=== PATIENT | male | born 1965 | race Caucasian/White ===

== ENCOUNTER 2021-02-03 12:48 | Outpatient (REF) | payer OTHER, SELFPAY ==
[2021-02-03 13:57] LABS: Amphetamine Screen Urine Not Detected (Not Detect); Barbiturates, Urine Not Detected (Not Detect); Benzodiazepines Screen Urine Not Detected (Not Detect); Cannabinoid Screen Urine Not Detected (Not Detect); Cocaine Screen Urine Not Detected (Not Detect); Fentanyl, urine Not Detected (Not Detect); Opiate Screen Urine Not Detected (Not Detect); Phencyclidine Screen Urine Not Detected (Not Detect)
== END 2021-02-03 12:49 | disposition home or self-care (01) ==
LOC: HO.LAB 12:48
PROVIDERS: PCP Internal Medicine; Visit Provider Internal Medicine
DX: F11.90 Opioid use, unspecified, uncomplicated (principal); Z79.899 Other long term (current) drug therapy
CPT/HCPCS: 80307

== ENCOUNTER → 2021-04-03 09:36 | Outpatient (REF) | payer OTHER, SELFPAY ==
--- NOTE | 2021-04-03 09:40 | CA_ITS ---
Transthoracic Echocardiogram Patient (Last, First, Middle): Raimundo Correa, Gender: Male Date of : 1965 Age: 55 Procedure Date: 04/03/2021 Procedure Type: Transthoracic Echocardiogram Location: OP Height: 157.48 cm Weight: 89.81 kg BSA: 1.90 m2 Heart Rate: bpm BP: 124 / 70 mmHg Metal Mockup Maker: Referring MD: Fariha Roberto MD Hand Potter: Ephraim Butt MD Symptoms: R07.9 - Chest pain, unspecified Study Quality: Fair ECG Rhythm: Sinus Conclusions: - Essentially normal study Findings Left Ventricle Normal left ventricular size, thickness, and systolic function. The visually estimated ejection fraction is between 60-65%. Spectral Doppler is indicative of a normal filling pattern. Right Ventricle Normal right ventricular cavity size and systolic function. Atria Both atria are normal in size. Interatrial shunt cannot be excluded. Aortic Valve The aortic valve structure and function is likely normal. There is no aortic valve stenosis. There is no aortic valve regurgitation. Mitral Valve Likely normal mitral valve structure and function. There is trace mitral valve regurgitation. There is no mitral valve stenosis. Pulmonic Valve The pulmonic valve was not well visualized. Tricuspid Valve Likely normal tricuspid valve structure and function. There is trace tricuspid valve regurgitation. The right ventricular systolic pressure is normal. There is no evidence of pulmonary hypertension. Great Vessels All visible segments of the aorta are normal in size. The pulmonary artery was not well visualized. Venous The inferior vena cava is normal in size and collapses greater than 50% with inspiration. Pericardium/Pleural There is no evidence of pericardial effusion. Prior Study Comparison no previous study in the last 5 years for comparison Measurements 2D Linear Measurements IVSd: 0.97 0.6-0.9/0.6-1.0 cm LVIDd: 3.95 3.9-5.3/4.2-5.9 cm LVIDd Index: 2.08 2.4-3.2/2.2-3.1 cm/m2 LVIDs: 2.24 2.0-3.6 cm LVPWd: 1.05 0.7-1.1 cm Ao Root: 2.70 2.1-3.5 cm LA Diam: 3.40 2.7-3.8/3.0-4.0 cm LAIDs Index: 1.79 1.5-2.3 cm/m2 LV Mass: 157.64 67-162/88-224 g LV Mass Index: 82.97 43-95/49-115 g/m2 LVOT Diam: 2.10 3.0+(-)1.3 cm 2D Systolic Function EF 4C: 56.30 >55% EF 2C: 59.60 >55% Mitral Valve MV Pk E: 0.96 MV PK A: 0.71 MV Decel Time: 180.00 E/A: 1.40 E'Lateral: 19.80 E'Medial: 9.03 E/E' Med: 10.70 E/E' Lat: 4.90 PHT: 53.00 MVA PHT: 4.15 Decel [place]: 5.35 Aortic Valve AoV Pk Marv: 1.40 AoV Mn Marv: 1.00 AoV VTI: 0.29 AoV Pk Grad: 8.00 Aov Mn Grad: 5.00 BENJAMIN Cont.VTI: 2.39 LVOT LVOT Pk Marv: 1.00 LVOT Mn Marv: 0.73 LVOT VTI: 0.20 LVOT Pk Grad: 4.00 LVOT Mn Grad: 2.00 LVOT Diam: 2.10 LVOT Area: 3.46 Diastolic Function MV Pk E: 0.96 MV Pk A: 0.71 E/A: 1.40 E'Medial: 9.03 E/E' Med: 10.70 E' Laterial: 19.80 E/E' Lat: 4.90 Right Ventricle TAPSE (mm): 23.00 Tricuspid Valve TR Pk Amrv: 2.14 TR Pk Grad: 18.00 RA Press: 3.00 RVSP: 21.00 Great Vessels Aorta Ao Root-2D: 2.70 2.0-3.7 cm Ao Asc: 2.50 2.1-3.4 cm Ao Arch: 2.70 Pulmonary Valve PV Pk Marv: 1.28 Peak PV Grad: 7.00 Updated in Other Vendor System with Status of Final Ephraim Butt MD electronically signed on 04/04/2021 11:39:38 AM with status of Final
--- NOTE | 2021-04-03 09:40 | ECG_ITS ---
Test Reason : CHEST PAIN Blood Pressure : / mmHG Vent. Rate : 097 BPM Atrial Rate : 097 BPM P-R Int : 148 ms QRS Dur : 084 ms QT Int : 334 ms P-R-T Axes : 063 056 050 degrees QTc Int : 424 ms Normal sinus rhythm Normal ECG When compared with ECG of 02-APR-2019 20:33, No significant change was found Referred By: Fariha Roberto Electronically Signed By:BUDDY RODGERS MD
== END ==
LOC: HO.CARD 09:36
PROVIDERS: Visit Provider Internal Medicine
DX: R07.9 Chest pain, unspecified (principal); R06.02 Shortness of breath
CPT/HCPCS: 93005; 93306

== ENCOUNTER 2021-05-29 08:02 | Outpatient (REF) | payer OTHER, SELFPAY ==
[2021-05-29 08:28] LABS: MANUAL DIFF FLAG NO
[2021-05-29 09:19] LABS: Basophils Absolute Auto 0.1 X10*3/uL (0.0-0.2); Basophils Percent Auto 0.7 % (0-2); Eosinophils Absolute Auto 0.3 X10*3/uL (0.0-0.4); Eosinophils Percent Auto 4.6 % (0-4); Hematocrit 40.5 % (42.0-52.0); Hemoglobin 13.7 g/dl (14.0-18.0); Imm Gran Abs Auto 0.04 X10*3/uL (0.00-0.03); Imm Gran Pct Auto 0.6 % (0.0-0.4); Lymphocytes Absolute Auto 1.7 X10*3/uL (1.2-4.9); Mean Corpuscular HGB Conc 33.8 g/dl (31.0-36.0); Mean Corpuscular Volume 94.6 fL (80.0-98.0); Mean Platelet Volume 9.2 fL (9.4-12.4); Monocytes Absolute Auto 0.7 X10*3/uL (0.1-1.2); Monocytes Percent Auto 9.5 % (2-11); Neutrophils Absolute Auto 4.1 x10*3/uL (2.0-8.3); Neutrophils Percent Auto 59.6 % (45-73); Platelet Count 253 X10*3/uL (160-400); Red Blood Count 4.28 X10*6/uL (4.60-5.80); Red Cell Distribution Width 11.8 % (11.0-16.0); White Blood Count 6.9 X10*3/uL (4.8-10.8)
[2021-05-29 09:36] LABS: Alanine Aminotransferase 50 U/L (0-40); Albumin Level 4.2 g/dL (3.5-5.0); Alkaline Phosphatase 170 U/L (39-117); Anion Gap 11 (12-20); Aspartate Amino Transferase 28 U/L (5-37); Bilirubin Total 0.5 mg/dL (0.0-1.0); Blood Urea Nitrogen 11 mg/dL (9-16); Calcium 9.8 mg/dL (8.4-10.2); Carbon Dioxide 28 mmol/L (22-29); Chloride 104 mmol/L (96-108); Cholesterol 183 mg/dL; Estimated Glomerular Filt Rate > 60; Glucose Fasting 101 mg/dL (60-99); HDL Cholesterol 41 mg/dL; LDL Cholesterol Calculated 83 mg/dl; Potassium 4.2 mmol/L (3.3-5.1); Sodium 139 mmol/L (135-145); Total Protein 6.8 g/dL (6.5-8.0); Triglycerides 296 mg/dL
[2021-05-29 09:56] LABS: PSA,Total (Free>4and<10) 1.06 ng/mL (0.00-4.00)
[2021-06-02 12:41] LABS: Vitamin D 25-OH, D2 <4 ng/mL; Vitamin D 25-OH, D3 28 ng/mL; Vitamin D 25-OH, Total 28 ng/mL (30-100)
== END 2021-05-29 08:03 | disposition home or self-care (01) ==
LOC: HO.LAB 08:02
PROVIDERS: PCP Internal Medicine; Visit Provider Internal Medicine
DX: D64.9 Anemia, unspecified (principal); E78.00 Pure hypercholesterolemia, unspecified; E78.5 Hyperlipidemia, unspecified; E55.9 Vitamin D deficiency, unspecified; Z12.5 Encounter for screening for malignant neoplasm of prostate
CPT/HCPCS: 36415; 80053; 80061; 82306; 84153; 85025

== ENCOUNTER 2021-06-01 13:27 | Outpatient (REF) | payer OTHER, SELFPAY ==
[2021-06-01 16:09] LABS: Amphetamine Screen Urine Not Detected (Not Detect); Barbiturates, Urine Not Detected (Not Detect); Benzodiazepines Screen Urine Not Detected (Not Detect); Cannabinoid Screen Urine Not Detected (Not Detect); Cocaine Screen Urine Not Detected (Not Detect); Fentanyl, urine Not Detected (Not Detect); Opiate Screen Urine Not Detected (Not Detect); Phencyclidine Screen Urine Not Detected (Not Detect)
[2021-06-05 08:56] LABS: Alprazolam, GCMS Urine NEGATIVE; Aminoclonazepam, GCMS Urine 74 (H); Nordiazepam, GCMS Urine NEGATIVE
[2021-06-05 08:57] LABS: Alphahydroxymidazolam,GCMS Ur NEGATIVE; Alphahydroxytriazolam, GCMS Ur NEGATIVE; Flurazepam Metabolite,GCMS Ur NEGATIVE; Lorazepam GCMS Urine NEGATIVE; Oxazepam, GCMS Urine NEGATIVE; Temazepam, GCMS Urine NEGATIVE
[2021-06-09 08:05] LABS: Codeine, Ur NEGATIVE; Hydrocodone, Ur NEGATIVE; Morphine, Ur NEGATIVE; Oxycodone, Ur 776
[2021-06-09 08:06] LABS: Hydromorphone, Ur NEGATIVE; Norhydrocodone, Ur NEGATIVE; Noroxycodone, Ur 367; Oxymorphone, Ur 400
== END 2021-06-01 13:28 | disposition home or self-care (01) ==
LOC: HO.LAB 13:27
PROVIDERS: Visit Provider Internal Medicine
DX: F11.20 Opioid dependence, uncomplicated (principal); F41.1 Generalized anxiety disorder
CPT/HCPCS: 80307; 80346; 80364; 80365

== ENCOUNTER 2021-09-25 07:59 | Outpatient (REF) | payer OTHER, SELFPAY ==
[2021-09-25 09:23] LABS: Alanine Aminotransferase 47 U/L (0-40); Albumin Level 4.3 g/dL (3.5-5.0); Alkaline Phosphatase 89 U/L (39-117); Anion Gap 13 (12-20); Aspartate Amino Transferase 31 U/L (5-37); Bilirubin Total 0.5 mg/dL (0.0-1.0); Blood Urea Nitrogen 9 mg/dL (9-16); Carbon Dioxide 26 mmol/L (22-29); Chloride 104 mmol/L (96-108); Cholesterol 172 mg/dL; Estimated Glomerular Filt Rate > 60; Glucose Fasting 94 mg/dL (60-99); HDL Cholesterol 42 mg/dL; LDL Cholesterol Calculated 96 mg/dl; Potassium 4.1 mmol/L (3.3-5.1); Sodium 139 mmol/L (135-145); Total Protein 6.8 g/dL (6.5-8.0); Triglycerides 173 mg/dL
[2021-09-25 09:28] LABS: Amphetamine Screen Urine Not Detected (Not Detect)
== END 2021-09-25 08:00 | disposition home or self-care (01) ==
LOC: HO.LAB 07:59
PROVIDERS: PCP Internal Medicine; Visit Provider Internal Medicine
DX: E78.00 Pure hypercholesterolemia, unspecified (principal); F41.9 Anxiety disorder, unspecified; E78.5 Hyperlipidemia, unspecified
CPT/HCPCS: 80053; 80061; 80307

== ENCOUNTER 2022-07-02 10:52 | Outpatient (REF) | payer OTHER, SELFPAY ==
[2022-07-02 14:14] LABS: Alanine Aminotransferase 28 U/L (0-40); Albumin Level 4.3 g/dL (3.5-5.0); Alkaline Phosphatase 103 U/L (39-117); Anion Gap 13 (12-20); Aspartate Amino Transferase 23 U/L (5-37); Bilirubin Total 0.4 mg/dL (0.0-1.0); Blood Urea Nitrogen 11 mg/dL (9-16); Calcium 9.7 mg/dL (8.4-10.2); Carbon Dioxide 28 mmol/L (22-29); Chloride 101 mmol/L (96-108); Cholesterol 177 mg/dL; Estimated Glomerular Filt Rate > 60; Glucose Fasting 94 mg/dL (60-99); HDL Cholesterol 45 mg/dL; LDL Cholesterol Calculated 108 mg/dl; Potassium 4.3 mmol/L (3.3-5.1); Sodium 138 mmol/L (135-145); Total Protein 6.7 g/dL (6.5-8.0); Triglycerides 124 mg/dL
== END 2022-07-02 10:53 | disposition home or self-care (01) ==
LOC: HO.10HDL 10:52
PROVIDERS: Visit Provider Internal Medicine
DX: E78.2 Mixed hyperlipidemia (principal)
CPT/HCPCS: 36415; 80053; 80061

== ENCOUNTER 2023-08-16 08:04 | Outpatient (AMB) | payer OTHER, SELFPAY ==
--- NOTE | 2023-08-16 08:13 | A.OFFPC_ITS ---
Vital Signs 08/16/23 08:15 Height 5 ft 3 in Weight 173 lb BMI 30.6 BP 136/84 Blood Pressure Location Lt brachial Position Sitting Intake Visit Reasons: Physical exam Intake Note: Patient here for a physical exam Personal Insurance Advisor Required: No Accompanied by: Self / Same As Patient Allergies citalopram [Celexa] Allergy (Intermediate, Verified 08/16/23 08:33) rash tramadol Allergy (Intermediate, Verified 08/16/23 08:33) Hallucinations gemfibrozil [GEMFIBROZIL] Adverse Reaction (Intermediate, Verified 08/16/23 08:33) NAUSEA & VOMITING Medication List - Last Reconciled 08/16/23 by Fariha Roberto MD atorvastatin 40 mg PO DAILY clonazepam 0.5 mg PO BID PRN clotrimazole-betamethasone 1-0.05 % 1 appl topical BID 2 weeks duloxetine 60 mg PO DAILY fenofibrate 54 mg PO DAILY 90 days lidocaine 5% 1 patch topical DAILY 30 days omeprazole 40 mg PO DAILY 90 days oxcarbazepine mg PO oxycodone 10 mg PO Q8H PRN 30 days polyvinyl alcohol 1.4% (Artificial Tears (polyvinyl alcohol)) 1 drp ophthalmic (eye) BID-QID PRN 30 days risperidone 1 mg PO BEDTIME risperidone 2 mg PO BEDTIME trazodone 100 mg PO BEDTIME Tobacco use date assessed: 08/16/23 Dental Screening Dental Screen Date: 08/16/23 Did you have a dental visit in the last 12 months?: No Did you have a dental problem in the last 6 months where you did not have access to dental care?: No Was dental information given to patient?: Patient declined HPI HPI Comments History of Present Illness Details This is a 57-year-old male with mild recurrent major depression and opiate dependence in controlled environment that comes for his physical exam. Depression has been aggravated by mother passing away. He has a counselor and is on a waiting list for a psychiatrist. He does take medication. On oxycodone for chronic low back pain and walks with a cane for gait stability. He is aware that can cause addiction and sedation. Complains of erectile dysfunction which can be due to testosterone deficiency secondary to oxycodone use and he is aware. He thinks it was the clonazepam and therefore was decreased. Testosterone will be measured. Has history of inhaling cocaine over 20 years ago and hepatitis-C will be order. Denies jaundice. Had colonoscopy few years ago at [facility] and it was normal. We will get the records. [facility] Medical History (Updated 08/16/23 @ 08:50 by Fariha Roberto MD) Eye tearing Mixed hyperlipidemia Opioid dependence in controlled environment SANJUANA (generalized anxiety disorder) Mild recurrent major depression Dry eyes Shortness of breath Chest pain Smoker GERD (gastroesophageal reflux disease) Pure hypercholesterolemia Depression with anxiety Lumbar degenerative disc disease Surgical History History of removal of retained hardware Deficient knowledge of leg surgery Family History Father Diabetes Prostate cancer Mother Diabetes Hypertension Rheumatoid arthritis Sister Colon cancer Maternal Aunt Cancer Diabetes Paternal Aunt Cancer Diabetes Social History Housing: Apartment Alcohol intake: former Patient Tobacco Use Status: Current everyday Tobacco user Tobacco use type: Cigarette Cigarettes Per Day: 15 e-Cigarette/Vaping Use: Never Used Second Hand Smoke Exposure: Yes service: No Current occupational status: disabled Cognitive needs: Yes Hearing needs: No Vision needs: Yes Questionnaire PHQ-9 Over the last 2 weeks, how often have you been bothered by any of the following problems? 1. Little interest or pleasure in doing things: more than half the days 2. Feeling down, depressed, or hopeless: more than half the days 3. Trouble falling or staying asleep, or sleeping too much: several days 4. Feeling tired or having little energy: not at all 5. Poor appetite or overeating: not at all 6. Feeling bad about yourself - or that you are a failure or have let yourself or your family down: several days 7. Trouble concentrating on things, such as reading the newspaper or watching television: nearly every day 8. Moving or speaking so slowly that other people could have noticed. Or the opposite - being so fidgety or restless that you have been moving around a lot more than usual: more than half the days 9. Thoughts that you would be better off or of hurting yourself in some way: not at all Total score: 11 Depression Screening Interpretation: Positive Depression Screening Follow-up: Existing condition, In treatment and Community Mental Health Worker F/U Depression Screening Done: Yes 70138 - PHQ-9 Billing: Yes Source: Developed by Drs. Av Mccann, Amber Steward, Inocente Colby and colleagues, with an educational sonya from [employer]. Thrive Questionnaire Date Thrive assessed: 08/16/23 I am a: Patient What is your living situation today?: I have a steady place to live Within the past 12 months, did the food you bought not last and you didn't have the money to get more?: Never true Within the past 12 months, did you worry whether your food would run out before you got money to buy more?: Never true Do you have trouble paying for medicines?: No Do you have trouble getting transportation to medical appointments?: No Do you have trouble paying your heating and electricity bill?: No Do you have trouble taking care of your child, family member or friend?: No Do you have trouble with day-to-day activities such as bathing, preparing meals, shopping, managing finances, etc.?: No Are you currently unemployed and looking for a job?: No Are you interested in more education?: No Please select the resources that you would like help with: None Currently or been in a relationship where the following occur: no concerns reported THRIVE Score: 0 AUDIT C Alcohol Use Questionnaire (AUDIT-C) 1. How often do you have a drink containing alcohol?: Never Total Score: 0 SANJUANA-7 AMB Questionnaire SANJUANA-7 Date SANJUANA - 7 assessed: 08/16/23 Feeling nervous, anxious, or on edge: 2 = More than half the days Not being able to stop or control worryin = Not at all Worrying too much about different things: 2 = More than half the days Trouble relaxin = More than half the days Being so restless that it is hard to sit still: 1 = Several days Becoming easily annoyed or irritable: 1 = Several days Feeling afraid as if something awful might happen: 1 = Several days Total SANJUANA-7 score (0-4 normal; 5-9 mild; 10-14 moderate; 15-21 severe): 9 Source: Developed by Amber Good Kurt Kroenke and colleagues, with an educational sonya from [employer]. Review of Systems Const All systems reviewed & are unremarkable except as noted in HPI and below Eyes Reports no additional complaints, Denies change in vision and Denies other visual disturbances Card Denies chest pain at rest, Denies chest pain with activity, Denies edema, Denies irregular heart rhythm, Denies claudication, Denies dyspnea, Denies dyspnea on exertion, Denies orthopnea, Denies paroxysmal nocturnal dyspnea and Denies slow heart rate Resp Denies cough, Denies dyspnea and Denies dyspnea on exertion GI Denies abdominal pain, Denies change in bowel habits, Denies excessive flatus, Denies nausea and Denies vomiting Neuro Denies lack of coordination Psych Reports depression Physical exam (Primary Care) Vital Signs: Last Vital Signs BP 136/84 08/16/23 08:15 BMI result Body Mass Index 30.6 Tobacco/Smoking Status: Tobacco use Status Tobacco use date assessed 08/16/23 08/16/23 08:21 Patient Tobacco Use Status Current everyday Tobacco 08/16/23 08:15 Tobacco use type Cigarette 08/16/23 08:15 e-Cigarette/Vaping Use Never Used 08/16/23 08:15 Are you ready to quit: No Tobacco cessation counseling provided: No PHQ-9: PHQ-9 Score PHQ-9: Total score 11 08/16/23 08:21 Depression Screening Interpretation: Positive Depression Screening Follow-up: Existing condition, In treatment and Community Mental Health Worker F/U Thrive Assessment: Date of Thrive Assessment Date Thrive assessed 08/16/23 08/16/23 08:21 Currently or been in a relationship where the following occur: no concerns reported Const Orientation/consciousness: patient oriented x3 Limitations: ambulation with cane HENMT Head: Yes normal to inspection, Yes normocephalic and Yes atraumatic Ears: external ears normal Eyes General: appearance normal, both eyes and all related structures Eyelids: Yes eyelids normal Conjunctivae: conjunctivae normal Neck Neck: Yes normal visual inspection and Yes supple Resp Effort & Inspection: normal respiratory effort Auscultation: clear to auscultation bilaterally Cardio Jugular venous distension: no JVD Rate: regular rate Rhythm: regular rhythm Heart sounds: S1 normal heart sound present and S2 normal heart sound present GI Inspection: Yes normal to inspection Palpation (GI): Soft to palpation and nontender Auscultation: normal bowel sounds Skin General skin exam: no rashes or lesions noted Neuro General: patient oriented x3 and no focal motor deficits Extrem General: Yes full ROM Psych Appearance: grossly normal Assessment and Plan Assessment & Plan (1) Physical exam: Code(s): Z00.00 - Encounter for general adult medical examination without abnormal findings Plan: Repeat in a year. (2) Opioid dependence in controlled environment: Code(s): F11.20 - Opioid dependence, uncomplicated Plan: Continue oxycodone as needed. (3) Mild recurrent major depression: Code(s): F33.0 - Major depressive disorder, recurrent, mild Plan: Continue Risperdal. Follow-up with counseling. Orders: Orders Lipid Panel Today E78.5 - Hyperlipidemia, unspecified Testosterone, Free/Total Today F11.20 - Opioid dependence, uncomplicated, N52.9 - Male erectile dysfunction, unspecified PSA,Total (Free>4and<10) Today Z12.5 - Encounter for screening for malignant neoplasm of prostate Comprehensive [place]. Panel Fast Today Z00.00 - Encounter for general adult medical examination without abnormal findings Hepatitis C Antibody Today Z11.59 - Encounter for screening for other viral diseases, Z91.89 - Other specified personal risk factors, not elsewhere classified PFT pulmonary function test Today XR chest 2V Today R06.00 - Dyspnea, unspecified Referrals Dermatology Referral L98.9 - Disorder of the skin and subcutaneous tissue, unspecified Medications: New levalbuterol tartrate 45 mcg/actuation (Xopenex HFA) 2 inhalations inhalation Q6H 30 days PRN 15 grams 1RF shortness of breath or wheezing J45.909 - Unspecified asthma, uncomplicated Coding Level of Care Code Est Pt Prev Care 40-64y(45880) Diagnoses Physical exam Z00.00 Opioid dependence in controlled environment F11.20 Mild recurrent major depression F33.0 Time Spent (min) 32
[2023-08-16 08:15] VITALS: BP 136/84; BMI 30.6
== END 2023-08-16 08:45 | disposition home or self-care (01) ==
PROVIDERS: PCP Internal Medicine; Visit Provider Internal Medicine
DX: Z00.00 Encounter for general adult medical examination without abnormal findings (principal); F11.20 Opioid dependence, uncomplicated; F33.0 Major depressive disorder, recurrent, mild
CPT/HCPCS: 99396

== ENCOUNTER 2024-02-16 09:44 | Outpatient (AMB) | payer OTHER, SELFPAY ==
--- NOTE | 2024-02-16 09:48 | MHC.PC.OV ---
Vital Signs 02/16/24 09:52 Height 5 ft 3 in Weight 181 lb BMI 32.1 BP 136/82 Blood Pressure Location Lt brachial Position Sitting Intake Visit Reasons: 6 Month F/U Intake Note: Patient here for a 6 month follow up Flight Surveyor Required: No Accompanied by: Self / Same As Patient Allergies citalopram [Celexa] Allergy (Intermediate, Verified 02/16/24 10:00) rash tramadol Allergy (Intermediate, Verified 02/16/24 10:00) Hallucinations gemfibrozil [GEMFIBROZIL] Adverse Reaction (Intermediate, Verified 02/16/24 10:00) NAUSEA & VOMITING Medication List - Last Reconciled 02/16/24 by Fariha Roberto MD atorvastatin 40 mg PO DAILY clonazepam 0.5 mg PO BID PRN clotrimazole-betamethasone 1-0.05 % 1 appl topical BID 2 weeks duloxetine 60 mg PO DAILY fenofibrate 54 mg PO DAILY 90 days levalbuterol tartrate 45 mcg/actuation (Xopenex HFA) 2 inhalations inhalation Q6H PRN 30 days lidocaine 5% 1 patch topical DAILY 30 days omeprazole 40 mg PO DAILY 90 days oxcarbazepine mg PO oxycodone 10 mg PO Q8H PRN 30 days polyvinyl alcohol 1.4% (Artificial Tears (polyvinyl alcohol)) 1 drp ophthalmic (eye) BID-QID PRN 30 days risperidone 1 mg PO BEDTIME risperidone 2 mg PO BEDTIME trazodone 100 mg PO BEDTIME Tobacco use date assessed: 08/16/23 Dental Screening Dental Screen Date: 08/16/23 HPI HPI Comments History of Present Illness Details This is a 58-year-old male with mixed hyperlipidemia, opioid dependence in controlled environment, GERD, mild major depression and anxiety that comes today for follow-up on his conditions. Walks with a cane due to chronic low back pain secondary to lumbar degenerative disc disease. On atorvastatin and fenofibrate for his mixed hyperlipidemia and lipid panel will be order. GERD stable with PPIs. Depression with anxiety is follow by Psychiatry and has been stable with medications. Denies any chest pain or shortness on breath. On oxycodone for his opioid dependence and back pain. Patient is aware that can cause addiction and sedation. [facility] Medical History Eye tearing Mixed hyperlipidemia Opioid dependence in controlled environment SANJUANA (generalized anxiety disorder) Mild recurrent major depression Dry eyes Shortness of breath Chest pain Smoker GERD (gastroesophageal reflux disease) Pure hypercholesterolemia Depression with anxiety Lumbar degenerative disc disease Surgical History History of removal of retained hardware Deficient knowledge of leg surgery Family History Father Diabetes Prostate cancer Mother Diabetes Hypertension Rheumatoid arthritis Sister Colon cancer Maternal Aunt Cancer Diabetes Paternal Aunt Cancer Diabetes Social History (Updated 02/16/24 @ 10:04 by Fariha Roberto MD) Housing: Apartment Alcohol intake: former Patient Tobacco Use Status: Current everyday Tobacco user Tobacco use type: Cigarette Cigarettes Per Day: 6 e-Cigarette/Vaping Use: Never Used Second Hand Smoke Exposure: Yes service: No Current occupational status: disabled Cognitive needs: Yes Hearing needs: No Vision needs: Yes Questionnaire Thrive Questionnaire Date Thrive assessed: 08/16/23 SANJUANA-7 AMB Questionnaire SANJUANA-7 Date SANJUANA - 7 assessed: 08/16/23 Source: Developed by Drs. Av Mccann, Amber Steward, Inocente Colby and colleagues, with an educational sonya from [employer]. Review of Systems Const All systems reviewed & are unremarkable except as noted in HPI and below Card Denies chest pain at rest, Denies chest pain with activity, Denies edema, Denies irregular heart rhythm, Denies claudication, Denies dyspnea, Denies dyspnea on exertion, Denies orthopnea, Denies paroxysmal nocturnal dyspnea and Denies slow heart rate Resp Denies cough, Denies dyspnea and Denies dyspnea on exertion Physical exam (Primary Care) Vital Signs: Last Vital Signs BP 136/82 02/16/24 09:52 BMI result Body Mass Index 32.1 BMI Assessment/Plan discussion: High BMI High, discussed plan: lifestyle, weight reduction, dietary and physical activity Tobacco/Smoking Status: Tobacco use Status Tobacco use date assessed 08/16/23 02/16/24 09:48 Patient Tobacco Use Status Current everyday Tobacco 02/16/24 10:04 Tobacco use type Cigarette 02/16/24 10:04 e-Cigarette/Vaping Use Never Used 02/16/24 10:04 Are you ready to quit: No Tobacco cessation counseling provided: Yes Items discussed: Nicotine replacement and QuitWorks Relapse Prevention: discussed the importance of a supportive environment, weight gain after smoking is common and discussed dietary, exercise and/or lifestyle changes Number of minutes spent counselin CPT code: 38433 - 4-10 Minutes Thrive Assessment: Date of Thrive Assessment Date Thrive assessed 08/16/23 02/16/24 09:48 Const General: cooperative Limitations: ambulation with cane Resp Effort & Inspection: normal respiratory effort Auscultation: clear to auscultation bilaterally Cardio Jugular venous distension: no JVD Rate: regular rate Rhythm: regular rhythm Heart sounds: S1 normal heart sound present and S2 normal heart sound present Office Procedures Flu Questionnaire Does the patient have a severe egg allergy?: No Does the patient have severe life threatening allergies?: No Does the patient have a fever or illness today?: No Has the patient ever had Guillain-[place] Syndrome?: No Has the patient ever had any past reaction to a flu shot?: No Immunizations Fluarix Triv [id number] (PF) 45 mcg (15 mcg x 3)/0.5 mL IM syringe Performing Provider: Fariha Roberto MD [facility] Administered by: NIELS Parker on 02/16/24 10:12 Dose Route Admin Location Dispensed Lot Number Expiration Date [facility] Rn Labor And Delivery 0.5 mL IM Left Deltoid 0.5 mL [id number] 10/15/24 [id number] [employer] [facility] VIS Given Date VIS Provided VIS Publication Date 02/16/24 Single Vaccine 20 Eligibility Eligibility Date Funding Source Not [facility] Eligible 02/16/24 Private Coding Level of Care Code Est Pt Level 4 (96822) Complex EM visit Add On G2211 Diagnoses Mixed hyperlipidemia E78.2 Opioid dependence in controlled environment F11.20 Mild recurrent major depression F33.0 SANJUANA (generalized anxiety disorder) F41.1 Gastroesophageal reflux disease, unspecified whether esophagitis present K21.9 Esophagitis presence: esophagitis presence not specified Additional Codes Vital Signs *Quality* - CPT code: 92160 - 4-10 Minutes ([id number]) Time Spent (min) 25 Assessment & Plan Assessment & Plan (1) Mixed hyperlipidemia: Code(s): E78.2 - Mixed hyperlipidemia Category: Medical Plan: Continue statins and fibrates. Repeat lipid panel. Follow a low-cholesterol diet. (2) Opioid dependence in controlled environment: Code(s): F11.20 - Opioid dependence, uncomplicated Category: Medical Plan: Continue oxycodone. Patient reports no side effects. Does not take more than prescribed. (3) Mild recurrent major depression: Code(s): F33.0 - Major depressive disorder, recurrent, mild Category: Medical Plan: Continue Risperdal. Follow-up with psychiatry. (4) SANJUANA (generalized anxiety disorder): Code(s): F41.1 - Generalized anxiety disorder Category: Medical Plan: Continue benzodiazepines as needed. Follow-up with psychiatry. (5) GERD (gastroesophageal reflux disease): Code(s): K21.9 - Gastro-esophageal reflux disease without esophagitis Category: Medical Qualifiers: Esophagitis presence: esophagitis presence not specified Qualified Code(s): K21.9 - Gastro-esophageal reflux disease without esophagitis Plan: Continue PPIs. Orders: Orders Influenza [id number] Immunization Today Z23 - Encounter for immunization Lipid Panel Today E78.5 - Hyperlipidemia, unspecified Comprehensive [place]. Panel Fast Today J45.909 - Unspecified asthma, uncomplicated PSA,Total (Free>4and<10) Today R35.1 - Nocturia Complete Blood Count Auto Diff Today D64.9 - Anemia, unspecified IRON PROFILE Today D64.9 - Anemia, unspecified Vitamin B12 and Folate Today E53.8 - Deficiency of other specified B group vitamins Vitamin D 25-OH Total Today E55.9 - Vitamin D deficiency, unspecified
[2024-02-16 09:52] VITALS: BP 136/82; BMI 32.1
== END 2024-02-16 10:47 | disposition home or self-care (01) ==
LOC: HO.HMCH 09:44
PROVIDERS: PCP Internal Medicine; Visit Provider Internal Medicine
DX: E78.2 Mixed hyperlipidemia (principal); F11.20 Opioid dependence, uncomplicated; F33.0 Major depressive disorder, recurrent, mild; F41.1 Generalized anxiety disorder; K21.9 Gastro-esophageal reflux disease without esophagitis; Z23 Encounter for immunization

== ENCOUNTER → 2024-02-16 09:44 | Outpatient (BNVA) | payer OTHER, SELFPAY | PROVIDERS: PCP Internal Medicine; Visit Provider Internal Medicine | DX: Z23 Encounter for immunization (principal); E78.2 Mixed hyperlipidemia; F11.20 Opioid dependence, uncomplicated; F33.0 Major depressive disorder, recurrent, mild; F41.1 Generalized anxiety disorder; K21.9 Gastro-esophageal reflux disease without esophagitis | CPT/HCPCS: 90471; 90656; 99212 ==

== ENCOUNTER 2025-01-09 10:29 | Outpatient (AMB) | payer OTHER, SELFPAY ==
--- NOTE | 2025-01-09 10:57 | A.OFFPC_ITS ---
Vital Signs 01/09/25 10:58 Height 5 ft 3 in Weight 178 lb 8 oz BMI 31.6 BP 150/80 H Blood Pressure Location Lt brachial Position Sitting Pulse 108 H Pulse Source Pulse Oximeter Temp 97.5 F Temp Source Temporal Artery Scan Pulse Oximetry (%) 96 Oxygen Delivery Method Room Air Intake Visit Reasons: Annual Exam Intake Note: Patient is here today for a physical. Cook Tortilla Required: No Light Armored Vehicle Officer: Not Required per policy Accompanied by: Self / Same As Patient Allergies citalopram (Celexa) Allergy (Intermediate, Verified 01/09/25 11:09) rash tramadol Allergy (Intermediate, Verified 01/09/25 11:09) Hallucinations gemfibrozil (GEMFIBROZIL) Adverse Reaction (Intermediate, Verified 01/09/25 11:09) NAUSEA & VOMITING Medication List - Last Reconciled 01/09/25 by Fariha Roberto MD atorvastatin 40 mg PO DAILY clonazepam 0.5 mg PO BID PRN clotrimazole-betamethasone 1-0.05 % 1 appl topical BID 2 weeks duloxetine 60 mg PO DAILY fenofibrate 54 mg PO DAILY 90 days levalbuterol tartrate 45 mcg/actuation (Xopenex HFA) 2 inhalations inhalation Q6H PRN 30 days lidocaine 5% 1 patch topical DAILY 30 days omeprazole 40 mg PO DAILY 90 days oxcarbazepine mg PO oxycodone 10 mg PO Q8H PRN 30 days polyvinyl alcohol 1.4% (Artificial Tears (polyvinyl alcohol)) 1 drp ophthalmic (eye) BID-QID PRN 30 days risperidone 1 mg PO BEDTIME risperidone 2 mg PO BEDTIME trazodone 100 mg PO BEDTIME Tobacco use date assessed: 01/09/25 Dental Screening Dental Screen Date: 01/09/25 Did you have a dental visit in the last 12 months?: Yes Did you have a dental problem in the last 6 months where you did not have access to dental care?: No Was dental information given to patient?: Patient has dentist HPI HPI Comments History of Present Illness Details The patient is a 59-year-old male presenting for a physical examination and management of chronic conditions. The patient has a history of hypertension, with current blood pressure readings noted to be elevated. A follow-up blood pressure check is planned in a couple of weeks to monitor the condition. The patient reports allergies to Celexa, which causes a rash, Tramadol, which induces hallucinations, and Gemfibrozil, which results in nausea and vomiting. Chronic back pain is managed with oxycodone 10 mg three times daily. The patient also uses omeprazole for acid reflux and oxcarbazepine. The patient has undergone surgeries on both legs, with a plate removal in 2003. Preventative care includes a Tdap vaccination last administered in 2016, with the next due in 2026, and a pneumonia vaccine received at age 52. [facility] Medical History (Updated 01/09/25 @ 12:24 by Fariha Roberto MD) Eye tearing Mixed hyperlipidemia Opioid dependence in controlled environment SANJUANA (generalized anxiety disorder) Mild recurrent major depression Dry eyes Shortness of breath Chest pain Smoker GERD (gastroesophageal reflux disease) Pure hypercholesterolemia Depression with anxiety Lumbar degenerative disc disease Surgical History History of removal of retained hardware Deficient knowledge of leg surgery Family History Father Diabetes Prostate cancer Mother Diabetes Hypertension Rheumatoid arthritis Sister Colon cancer Maternal Aunt Cancer Diabetes Paternal Aunt Cancer Diabetes Social History Housing: Apartment Alcohol intake: former Patient Tobacco Use Status: Current everyday Tobacco user Tobacco use type: Cigarette Cigarettes Per Day: 6 e-Cigarette/Vaping Use: Never Used Second Hand Smoke Exposure: Yes service: No Current occupational status: disabled Cognitive needs: Yes Hearing needs: No Vision needs: Yes Questionnaire PHQ-9 Over the last 2 weeks, how often have you been bothered by any of the following problems? 1. Little interest or pleasure in doing things: several days 2. Feeling down, depressed, or hopeless: several days 3. Trouble falling or staying asleep, or sleeping too much: not at all 4. Feeling tired or having little energy: not at all 5. Poor appetite or overeating: not at all 6. Feeling bad about yourself - or that you are a failure or have let yourself or your family down: not at all 7. Trouble concentrating on things, such as reading the newspaper or watching television: not at all 8. Moving or speaking so slowly that other people could have noticed. Or the opposite - being so fidgety or restless that you have been moving around a lot more than usual: not at all 9. Thoughts that you would be better off or of hurting yourself in some way: not at all Total score: 2 Depression Screening Interpretation: Positive Depression Screening Follow-up: Existing condition, In treatment, Community Mental Health Worker F/U and Follow- up Visit Requested Depression Screening Done: Yes 03478 - PHQ-9 Billing: Yes Source: Developed by Drs. Av Mccann, Amber Steward, Inocente Colby and colleagues, with an educational sonya from [employer]. Thrive Questionnaire Date Thrive assessed: 01/09/25 I am a: Patient What is your living situation today?: I have a steady place to live Within the past 12 months, did the food you bought not last and you didn't have the money to get more?: Never true Within the past 12 months, did you worry whether your food would run out before you got money to buy more?: Never true Do you have trouble paying for medicines?: No Do you have trouble getting transportation to medical appointments?: No Do you have trouble paying your heating and electricity bill?: No Do you have trouble taking care of your child, family member or friend?: No Do you have trouble with day-to-day activities such as bathing, preparing meals, shopping, managing finances, etc.?: No Are you currently unemployed and looking for a job?: Yes Are you interested in more education?: No Please select the resources that you would like help with: None Currently or been in a relationship where the following occur: No concerns reported THRIVE Score: 0 AUDIT C Alcohol Use Questionnaire (AUDIT-C) 1. How often do you have a drink containing alcohol?: Never Total Score: 0 Score Reviewed/Action Taken: No SANJUANA-7 AMB Questionnaire SANJUANA-7 Date SANJUANA - 7 assessed: 01/09/25 Feeling nervous, anxious, or on edge: 0 = Not at all Not being able to stop or control worryin = More than half the days Worrying too much about different things: 2 = More than half the days Trouble relaxin = More than half the days Being so restless that it is hard to sit still: 2 = More than half the days Becoming easily annoyed or irritable: 2 = More than half the days Feeling afraid as if something awful might happen: 2 = More than half the days Total SANJUANA-7 score (0-4 normal; 5-9 mild; 10-14 moderate; 15-21 severe): 12 Source: Developed by Drs. Av Mccann, Amber Steward, Inocente Colby and colleagues, with an educational sonya from [employer]. SANJUANA-7 Assessment Billing SANJUANA-7 Assessment Tool: SANJUANA-7 Assessment [id number] Review of Systems Const All systems reviewed & are unremarkable except as noted in HPI and below Card Denies chest pain at rest, Denies chest pain with activity, Denies edema, Denies irregular heart rhythm, Denies claudication, Denies dyspnea, Denies dyspnea on exertion, Denies orthopnea, Denies paroxysmal nocturnal dyspnea and Denies slow heart rate Resp Denies cough, Denies dyspnea and Denies dyspnea on exertion GI Denies abdominal pain, Denies change in bowel habits, Denies excessive flatus, Denies nausea and Denies vomiting Denies urinary hesitancy, Denies urinary incontinence and Denies urinary urgency Musc Denies abnormal gait, Denies atrophy, Denies deformity and Denies limited range of motion Skin/Breast Denies bleeding lesions, Denies changing lesions and Denies rash Neuro Denies abnormal gait and Denies lack of coordination Physical exam (Primary Care) Vital Signs: Last Vital Signs Temp 97.5 F 01/09/25 10:58 Pulse 108 H 01/09/25 10:58 BP 150/80 H 01/09/25 10:58 Pulse Ox 96 01/09/25 10:58 Oxygen Delivery Method Room Air 01/09/25 10:58 BMI result Body Mass Index 31.6 Tobacco/Smoking Status: Tobacco use Status Tobacco use date assessed 01/09/25 01/09/25 11:01 Patient Tobacco Use Status Current everyday Tobacco 01/09/25 11:01 Tobacco use type Cigarette 01/09/25 11:01 e-Cigarette/Vaping Use Never Used 01/09/25 11:01 PHQ-9: PHQ-9 Score PHQ-9: Total score 2 01/09/25 11:19 Depression Screening Interpretation: Positive Depression Screening Follow-up: Existing condition, In treatment, Community Mental Health Worker F/U and Follow- up Visit Requested Thrive Assessment: Date of Thrive Assessment Date Thrive assessed 01/09/25 01/09/25 11:01 Currently or been in a relationship where the following occur: No concerns reported Const Limitations: ambulation with cane HENMT Head: Yes normal to inspection, Yes normocephalic and Yes atraumatic Ears: external ears normal Eyes General: appearance normal, both eyes and all related structures Eyelids: Yes eyelids normal Conjunctivae: conjunctivae normal Neck Neck: Yes normal visual inspection and Yes supple Resp Effort & Inspection: normal respiratory effort Auscultation: clear to auscultation bilaterally Cardio Jugular venous distension: no JVD Rate: regular rate Rhythm: regular rhythm Heart sounds: S1 normal heart sound present and S2 normal heart sound present GI Inspection: Yes normal to inspection Palpation (GI): Soft to palpation and nontender Auscultation: normal bowel sounds Skin General skin exam: no rashes or lesions noted Neuro General: no focal motor deficits Extrem General: Yes full ROM Psych Appearance: grossly normal Coding Level of Care Code Est Pt Level 3 (81092) Est Pt Prev Care 40-64y(20358) Diagnoses Physical exam Z00.00 Right hip pain M25.551 Mild recurrent major depression F33.0 Opioid dependence in controlled environment F11.20 Additional Codes SANJUANA-7 Assessment Billing - SANJUANA-7 Assessment Tool: SANJUANA-7 Assessment 08720 ([id number]) PHQ-9 - 97760 - PHQ-9 Billing: Yes ([id number]) Time Spent (min) 32 Assessment & Plan Assessment & Plan (1) Physical exam: Code(s): Z00.00 - Encounter for general adult medical examination without abnormal findings Category: Medical (2) Right hip pain: Code(s): M25.551 - Pain in right hip Category: Medical (3) Mild recurrent major depression: Code(s): F33.0 - Major depressive disorder, recurrent, mild Category: Medical (4) Opioid dependence in controlled environment: Code(s): F11.20 - Opioid dependence, uncomplicated Category: Medical Plan Repeat physical exam in a year. X-ray of the hip ordered. Orders: Orders XR hip RT min 2V Today M25.551 - Pain in right hip Complete Blood Count Auto Diff Today D64.9 - Anemia, unspecified IRON PROFILE Today D64.9 - Anemia, unspecified Lipid Panel Today E78.5 - Hyperlipidemia, unspecified Comprehensive [place]. Panel Fast Today E78.00 - Pure hypercholesterolemia, unspecified Referrals Open Access Screening Colonoscopy Referral Z12.12 - Encounter for screening for malignant neoplasm of rectum Medications: New naloxone 4 mg/actuation (Narcan) spray 1 dose into ONE nostril; alternate nostrils w each dose until help arrives 4 mg intranasal Q2M PRN 2 ea 1RF opioid overdose 30 days Refilled oxycodone 10 mg PO Q8H PRN 90 tabs 0RF pain 30 days F11.20 - Opioid dependence, uncomplicated, M25.551 - Pain in right hip, M51.36 - Other intervertebral disc degeneration, lumbar region
[2025-01-09 10:58] VITALS: BP 150/80; PULSE 108; TEMP 36.4; O2SAT 96; BMI 31.6
--- OUTSIDE RECORDS SUMMARY | 2025-01-09 13:07 | XMS_ITS | Clinical Summary ---
Author Organization [employer] [facility] Address [address] [place] [address] [address] [place] [address] Care Team Providers Care Aircraft Assembler Name Role Phone Unavailable Primary Care Provider Unavailabl e Social History Tobacco Use Types Packs/Day Years Used Date Smoking Tobacco: Never Assessed Sex and Gender Information Value Date Recorded Sex Assigned at Male 02/15/2022 10:17 AM EDT Legal Sex Male 10:17 AM EDT Gender Identity Male 02/15/2022 10:17 AM EDT Sexual Orientation Don't know 02/15/2022 10 :17 AM EDT Plan of Treatment Health Maintenance Due Date Last Done Comments CT Colonography 1967 Colonoscopy 1967 Colorectal Cancer Screening 1967 Depression Screening 1967 FIT DNA/Cologuard 1967 FIT 1967 FOBT 1967 HIV Screening 1967 Lipid Panel 1967 SDOH Screening 1967 Sigmoidoscopy 1967 Disability Screening 1967 Alcohol/Substance Use Screening 1979 Tobacco Screening 1979 Hepatitis C Screening 10/12/1985 Zoster Vaccines (1 of 2) 10/12/2017 Pneumococcal Vaccine: 50+ Years (2 of 2 - PCV) 07/15/2019 07/14/2018, 02/14/2018 COVID-19 Vaccine ( season) 2024 03/23/2021, 07/25/2020, 06/27/2020 Influenza Vaccine (#1) 2024 9, 02/14/2018, 01/01/2013, Additional history exists DTaP/Tdap/Td Vaccines (3 - Td or Tdap) 05/10/2026 05/10/2016, 07/18/2012, 01/22/2004 RSV Patients and Patients Aged 60 years or older (1 - 1-dose 75+ series) 10/12/2042 Hepatitis A Vaccines Aged Out 04/23/2008, 09/18/19 08 No longer eligible based on patient's age to complete this topic Hepatitis B Vaccines Completed 04/23/2008, 10/18/2007, 09/18/2007 HIB Vaccines Aged Out No longer eligi ble based on patient's age to complete this topic HPV Vaccines Aged Out No longer eligi ble based on patient's age to complete this topic IPV Vaccines Aged Out No longer eligi ble based on patient's age to complete this topic Meningococcal B Vaccine Aged Out No l onger eligible based on patient's age to complete this topic Meningococcal Vaccine Aged Out No keiko florencia eligible based on patient's age to complete this topic RSV under 20 months Aged Out No longe r eligible based on patient's age to complete this topic Rotavirus Vaccines Aged Out No longer eligible based on patient's age to complete this topic Insurance [address] [place] [id number] [facility]
== END 2025-01-09 11:34 | disposition home or self-care (01) ==
PROVIDERS: PCP Internal Medicine; Visit Provider Internal Medicine
DX: Z00.00 Encounter for general adult medical examination without abnormal findings (principal); M25.551 Pain in right hip; F33.0 Major depressive disorder, recurrent, mild; F11.20 Opioid dependence, uncomplicated

== ENCOUNTER → 2025-01-09 10:29 | Outpatient (BNVA) | payer OTHER, SELFPAY | PROVIDERS: PCP Internal Medicine; Visit Provider Internal Medicine | DX: Z00.00 Encounter for general adult medical examination without abnormal findings (principal); I10 Essential (primary) hypertension; M25.551 Pain in right hip; F33.0 Major depressive disorder, recurrent, mild; F11.20 Opioid dependence, uncomplicated; D64.9 Anemia, unspecified; E78.00 Pure hypercholesterolemia, unspecified; M51.360 Other intervertebral disc degeneration, lumbar region with discogenic back pain only; Z88.8 Allergy status to other drugs, medicaments and biological substances | CPT/HCPCS: 96127; 99212; 99396 ==